=== PATIENT | male | born 1975 | race Hispanic/Latino ===

== ENCOUNTER 2016-11-09 13:28 | Outpatient (CLI) | payer OTHER ==
--- NOTE | 2016-11-10 08:20 | Magnetic Resonance Report ---
MRI LUMBAR SPINE WITHOUT CONTRAST HISTORY: Chronic back pain, radiculopathy.. TECHNIQUE: axial T1, T2. sagittal T1,T2, STIR. COMPARISON: none. FINDINGS: The conus terminates at L1. No signal abnormality or mass. The cauda equina is within normal limits. No central canal stenosis. There is mild disc desiccation and narrowing at T11-12, L4-5 and L5-S1. Mild diffuse facet arthropathy. Normal height and alignment of the lumbar vertebra. Normal bone marrow signal. No acute fracture or suspicious bone lesion. The paraspinal soft tissues are unremarkable. L1-2: Normal. L2-3: Normal. L3-4: Normal. L4-5: Minimal posterior bulging disc which lateralizes to the right side. No significant neural foraminal narrowing. There is moderate facet arthropathy with fluid in the synovial joints. L5-S1: No significant bulging disc. A focal midline annular tear is identified without associated protrusion. Minimal facet arthropathy.. IMPRESSION: Mild lumbar spondylosis as described. No evidence for herniation, central canal narrowing or significant neural foraminal narrowing. See above.
== END 2016-11-09 13:29 | disposition home or self-care (01) ==
LOC: MRI 13:28
PROVIDERS: ATTEND Internal Medicine
DX: M47.26 Other spondylosis with radiculopathy, lumbar region (principal); M51.17 Intervertebral disc disorders with radiculopathy, lumbosacral region; M12.88 Other specific arthropathies, not elsewhere classified, other specified site; I10 Essential (primary) hypertension; E78.2 Mixed hyperlipidemia
CPT/HCPCS: 72148